=== PATIENT | female | born 1940 | race Native Hawaiian/Other Pacific Islander ===

== ENCOUNTER 2018-04-14 15:46 | Outpatient (CLI) | payer OTHER | END 2018-04-14 20:20 | disposition home or self-care (01) | LOC: LAB 15:46 | DX: N18.4 Chronic kidney disease, stage 4 (severe) (principal); D63.1 Anemia in chronic kidney disease | CPT/HCPCS: 85014; 85018 ==

== ENCOUNTER 2018-05-02 15:43 | Outpatient (CLI) | payer OTHER ==
[2018-05-02 16:10] LABS: POTASSIUM 2.9 mmol/L (3.6-5.2)
== END 2018-05-02 22:10 | disposition home or self-care (01) ==
LOC: LAB 15:43
PROVIDERS: Emergency Medicine
DX: I50.9 Heart failure, unspecified (principal); D64.9 Anemia, unspecified
CPT/HCPCS: 80048; 85014; 85018